=== PATIENT | female | born 1990 | race Caucasian/White ===

== ENCOUNTER 2017-11-07 12:25 | Emergency (ER) | payer OTHER, BC, MEDICAID, SELFPAY ==
[2017-11-07 14:23] LABS: BASO # 0.1 10^3/uL (0.0-0.2); BASO % 0.5 % (0.0-1.0); EOS # 0.2 10^3/uL (0.0-0.50); EOS % 1.6 % (0.0-3.0); HEMOGLOBIN 14.8 g/dl (12.0-16.0); IMMATURE GRANULOCYTE % 0.2 % (0-0); LYMPH # 2.7 10^3/uL (1.5-6.5); LYMPH % 21.6 % (24.0-44.0); MEAN CORPUSCULAR HEMOGLOBIN 32.4 pg (27.0-33.0); MEAN CORPUSCULAR HGB CONC 33.6 g/dl (32.0-36.5); MEAN CORPUSCULAR VOLUME 96.3 fl (80.0-96.0); MONO # 0.6 10^3/uL (0.0-0.8); MONO % 4.7 % (0.0-5.0); NEUTROPHILS # 8.7 10^3/uL (1.8-7.7); NEUTROPHILS % 71.4 % (36.0-66.0); PLATELET COUNT, AUTOMATED 285 10^3/uL (150-450); RED BLOOD COUNT 4.57 10^6/uL (4.00-5.40); RED CELL DISTRIBUTION WIDTH 12.1 % (11.5-14.5); WHITE BLOOD COUNT 12.3 10^3/uL (4.0-10.0)
[2017-11-07 15:06] LABS: ALBUMIN 4.2 GM/DL (3.2-5.2); ALBUMIN/GLOBULIN RATIO 1.08 (1.00-1.93); ALKALINE PHOSPHATASE 76 U/L (45-117); ALT/SGPT 28 U/L (12-78); ANION GAP 7 MEQ/L (8-16); AST/SGOT 16 U/L (7-37); BILIRUBIN,DIRECT 0.1 MG/DL (0.0-0.2); BILIRUBIN,TOTAL 0.4 MG/DL (0.2-1.0); BLOOD UREA NITROGEN 10 MG/DL (7-18); CALCIUM LEVEL 8.8 MG/DL (8.5-10.1); CARBON DIOXIDE LEVEL 27 MEQ/L (21-32); CHLORIDE LEVEL 103 MEQ/L (98-107); CREATININE FOR GFR 0.68 MG/DL (0.55-1.02); GLOMERULAR FILTRATION RATE > 60.0 (>60); GLUCOSE, FASTING 91 MG/DL (70-100); LIPASE 319 U/L (73-393); POTASSIUM SERUM 3.6 MEQ/L (3.5-5.1); SODIUM LEVEL 137 MEQ/L (136-145); TOTAL PROTEIN 8.1 GM/DL (6.4-8.2)
[2017-11-07 15:08] LABS: HCG, SERUM QUANTITATIVE 75 MIU/ML
[2017-11-07 15:31] LABS: KETONE, URINE AUTO RFX TRACE mg/dL (NEGATIVE); LEUKOCYTE ESTERASE UR AUTO RFX NEGATIVE (NEGATIVE); NITRITE, URINE AUTO RFX NEGATIVE (NEGATIVE); RBC, URINE AUTO RFX 3 /HPF (0-3); SPECIFIC GRAVITY UR AUTO RFX 1.014 (1.002-1.035); SQUAM EPITHELIAL CELL UR AURFX 0 /HPF (0-6); WBC, URINE AUTO RFX 3 /HPF (0-3)
[2017-11-07 15:46] LABS: CHLAMYDIA DNA AMPLIFICATION NEGATIVE (NEGATIVE); GC DNA AMPLIFICATION NEGATIVE (NEGATIVE)
[2017-11-07] MEDS: metroNIDAZOLE (FLAGYL) 500 MG TAB PO (17:24)
== END 2017-11-07 18:00 | disposition home or self-care (01) ==
LOC: M ED 12:25
DX: O20.0 Threatened abortion (principal); O23.90 Unspecified genitourinary tract infection in pregnancy, unspecified trimester; O99.330 Smoking (tobacco) complicating pregnancy, unspecified trimester; O99.340 Other mental disorders complicating pregnancy, unspecified trimester; F17.210 Nicotine dependence, cigarettes, uncomplicated; F33.9 Major depressive disorder, recurrent, unspecified; O99.310 Alcohol use complicating pregnancy, unspecified trimester; F10.21 Alcohol dependence, in remission; Z3A.00 Weeks of gestation of pregnancy not specified; Z79.899 Other long term (current) drug therapy; Z88.0 Allergy status to penicillin
CPT/HCPCS: 76801

== ENCOUNTER → 2017-11-09 | Outpatient (CLI) | payer OTHER ==
[2017-11-09 13:12] LABS: HCG, SERUM QUANTITATIVE 228 MIU/ML
== END ==
LOC: M LAB 11:45
DX: O20.0 Threatened abortion (principal)
CPT/HCPCS: 84702

== ENCOUNTER → 2017-12-09 | Outpatient (CLI) | payer OTHER ==
[2017-12-09 15:24] LABS: BASO # 0.1 10^3/uL (0.0-0.2); BASO % 0.5 % (0.0-1.0); EOS # 0.1 10^3/uL (0.0-0.50); EOS % 1.2 % (0.0-3.0); HEMATOCRIT 36.6 % (36.0-47.0); HEMOGLOBIN 12.3 g/dl (12.0-16.0); IMMATURE GRANULOCYTE % 0.3 % (0-3.0); LYMPH # 2.4 10^3/uL (1.5-6.5); LYMPH % 20.2 % (24.0-44.0); MEAN CORPUSCULAR HEMOGLOBIN 32.1 pg (27.0-33.0); MEAN CORPUSCULAR HGB CONC 33.6 g/dl (32.0-36.5); MEAN CORPUSCULAR VOLUME 95.6 fl (80.0-96.0); MONO # 0.8 10^3/uL (0.0-0.8); MONO % 6.8 % (0.0-5.0); NEUTROPHILS # 8.3 10^3/uL (1.8-7.7); PLATELET COUNT, AUTOMATED 300 10^3/uL (150-450); RED BLOOD COUNT 3.83 10^6/uL (4.00-5.40); RED CELL DISTRIBUTION WIDTH 12.2 % (11.5-14.5); WHITE BLOOD COUNT 11.7 10^3/uL (4.0-10.0)
[2017-12-09 15:37] LABS: RUBELLA IgG QUALITATIVE IMMUNE (IMMUNE)
[2017-12-09 15:38] LABS: HBsAg Prenatal NEGATIVE (NEGATIVE)
[2017-12-09 16:06] LABS: HIV 1&2 SCREEN CENTAUR NEGATIVE (NEGATIVE)
[2017-12-09 16:53] LABS: CHLAMYDIA DNA AMPLIFICATION NEGATIVE (NEGATIVE); GC DNA AMPLIFICATION NEGATIVE (NEGATIVE)
== END ==
LOC: M WUC 13:20
DX: Z34.01 Encounter for supervision of normal first pregnancy, first trimester (principal)
CPT/HCPCS: 86762

== ENCOUNTER → 2018-01-05 | Outpatient (CLI) | payer OTHER | LOC: M LAB 15:58 | DX: Z13.79 Encounter for other screening for genetic and chromosomal anomalies (principal) | CPT/HCPCS: 36415 ==

== ENCOUNTER → 2023-09-14 | Outpatient (REF) | payer MEDICAID, OTHER ==
[~2023-09-14] MED LIST: EFFE37.52 PO; METR-265 PO; NALT50TA4 PO; TRAZ-252 PO
== END ==
LOC: M SFHCWAGY 10:05
PROVIDERS: ATTEND Nurse Practitioner Family
DX: Z11.3 Encounter for screening for infections with a predominantly sexual mode of transmission (principal); N89.8 Other specified noninflammatory disorders of vagina

== ENCOUNTER → 2023-10-21 | Outpatient (REF) | payer OTHER, MEDICAID ==
[2023-10-21 14:20] LABS: CHLAMYDIA DNA AMPLIFICATION NEGATIVE (NEGATIVE); GC DNA AMPLIFICATION NEGATIVE (NEGATIVE)
== END ==
LOC: M SFHCWAGY 12:28
PROVIDERS: ATTEND Nurse Practitioner Family
DX: Z11.3 Encounter for screening for infections with a predominantly sexual mode of transmission (principal); N73.9 Female pelvic inflammatory disease, unspecified

== ENCOUNTER → 2023-12-29 | Outpatient (REF) | LOC: M EMP 15:25 | PROVIDERS: ATTEND Family Medicine | DX: Z11.52 Encounter for screening for COVID-19 (principal) ==

== ENCOUNTER → 2024-01-05 | Outpatient (REF) | payer OTHER | LOC: M SFHCWAGY 10:32 | PROVIDERS: ATTEND Nurse Practitioner Family | DX: N73.9 Female pelvic inflammatory disease, unspecified (principal) ==

== ENCOUNTER → 2024-08-23 | Outpatient (CLI) | payer OTHER ==
[2024-08-23 13:29] LABS: HEMATOCRIT 39.5 % (36.0-47.0); HEMOGLOBIN 12.8 g/dl (12.0-15.5); MEAN CORPUSCULAR HEMOGLOBIN 32.1 pg (27.0-33.0); MEAN CORPUSCULAR HGB CONC 32.4 g/dl (32.0-36.5); PLATELET COUNT, AUTOMATED 305 10^3/uL (150-450); RED BLOOD COUNT 3.99 10^6/uL (4.00-5.40); WHITE BLOOD COUNT 11.9 10^3/uL (4.0-10.0)
[2024-08-23 13:56] LABS: HIV 1&2 SCREEN NEGATIVE (NEGATIVE)
[2024-08-23 14:05] LABS: HEPATITIS C VIRUS ABY INDEX < 0.02 INDEX (<0.8)
[2024-08-23 15:22] LABS: Trichomonas vaginalis (AMP) NOT DETECTED (NEGATIVE)
[2024-08-23 15:45] LABS: GC DNA AMPLIFICATION NEGATIVE (NEGATIVE)
== END ==
LOC: M PLALAB 09:34
PROVIDERS: ATTEND Obstetrics & Gynecology
DX: Z34.81 Encounter for supervision of other normal pregnancy, first trimester (principal)

== ENCOUNTER 2024-10-17 16:38 | Emergency (ER) | payer OTHER, MEDICAID ==
[2024-10-17] MEDS ORDERED: PRENTAB9 PO (17:16)
== END 2024-10-17 19:13 | disposition left against medical advice (07) ==
LOC: M ED 16:38
DX: Z53.21 Procedure and treatment not carried out due to patient leaving prior to being seen by health care provider (principal)

== ENCOUNTER 2024-10-17 16:52 | Outpatient (CLI) | payer OTHER, MEDICAID ==
[~2024-10-17] VITALS: Ht 154.9 cm; Wt 55.2 kg
[2024-10-17 17:14] VITALS: BP 102/59; O2SAT 100
[2024-10-17] MEDS ORDERED: PRENTAB9 PO (17:16)
[2024-10-17 18:02] LABS: APPEARANCE, URINE CLEAR (CLEAR); BACTERIA, URINE AUTO NEGATIVE (NEGATIVE); BILIRUBIN, URINE AUTO NEGATIVE (NEGATIVE); BLOOD, URINE BLOOD 1+ (NEGATIVE); COLOR, URINE STRAW (YELLOW); GLUCOSE, URINE (UA) AUTO NEGATIVE (NEGATIVE); KETONE, URINE AUTO NEGATIVE (NEGATIVE); LEUKOCYTE ESTERASE, URINE AUTO NEGATIVE (NEGATIVE); NITRITE, URINE AUTO NEGATIVE (NEGATIVE); PROTEIN, URINE AUTO NEGATIVE (NEGATIVE); RBC, URINE AUTO 3 /HPF (0-3); SPECIFIC GRAVITY URINE AUTO 1.002 (1.002-1.035); SQUAMOUS EPITHELIAL CELL UR AU 1 /HPF (0-6); UROBILINOGEN, URINE AUTO 0.2 mg/dL (0.0-2.0); WBC, URINE AUTO 0 /HPF (0-3)
== END 2024-10-17 19:20 | disposition home or self-care (01) ==
LOC: M LDO 16:52
PROVIDERS: ATTEND Advanced Practice Midwife
DX: O26.892 Other specified pregnancy related conditions, second trimester (principal); R25.2 Cramp and spasm; Z3A.20 20 weeks gestation of pregnancy; W19.XXXA Unspecified fall, initial encounter; O99.332 Smoking (tobacco) complicating pregnancy, second trimester; F17.290 Nicotine dependence, other tobacco product, uncomplicated; Z14.8 Genetic carrier of other disease
CPT/HCPCS: 76815; 76817; 81001; G0463

== ENCOUNTER → 2024-11-09 | Outpatient (CLI) | payer OTHER ==
[~2024-11-09] MED LIST changes: +PRENTAB9 PO
== END ==
LOC: M WHC 13:09
PROVIDERS: ATTEND Obstetrics & Gynecology
DX: O34.32 Maternal care for cervical incompetence, second trimester (principal); Z3A.23 23 weeks gestation of pregnancy

== ENCOUNTER → 2024-11-28 | Outpatient (REF) | payer OTHER | LOC: M PLALAB 16:21 | PROVIDERS: ATTEND Nurse Practitioner Family | DX: Z34.82 Encounter for supervision of other normal pregnancy, second trimester (principal) ==

== ENCOUNTER 2024-12-12 13:41 | Outpatient (CLI) | payer OTHER, MEDICAID ==
[~2024-12-12] VITALS: Ht 154.9 cm; Wt 59.3 kg
[2024-12-12] MEDS ORDERED: HOME MED LIST COMPLETE! XX SCH (13:55)
[2024-12-12 14:02] VITALS: BP 102/55
[2024-12-12 15:06] VITALS: BP 98/54
== END 2024-12-12 15:40 | disposition home or self-care (01) ==
LOC: M LDO 13:41
PROVIDERS: ATTEND Advanced Practice Midwife
DX: O36.8130 Decreased fetal movements, third trimester, not applicable or unspecified (principal); O99.333 Smoking (tobacco) complicating pregnancy, third trimester; O99.343 Other mental disorders complicating pregnancy, third trimester; R10.2 Pelvic and perineal pain; O44.43 Low lying placenta NOS or without hemorrhage, third trimester; F17.290 Nicotine dependence, other tobacco product, uncomplicated; Z14.8 Genetic carrier of other disease; F41.8 Other specified anxiety disorders; F31.9 Bipolar disorder, unspecified; Z3A.28 28 weeks gestation of pregnancy
CPT/HCPCS: 59025; 76815; 76819; 76820; G0463

== ENCOUNTER → 2024-12-22 | Outpatient (CLI) | payer OTHER | LOC: M LAB 16:59 | PROVIDERS: ATTEND Nurse Practitioner Family | DX: Z14.8 Genetic carrier of other disease (principal) ==

== ENCOUNTER → 2024-12-22 | Outpatient (CLI) | payer OTHER ==
[2024-12-22 12:47] LABS: HEMOGLOBIN 12.6 g/dl (12.0-15.5); MEAN CORPUSCULAR HEMOGLOBIN 32.6 pg (27.0-33.0); MEAN CORPUSCULAR HGB CONC 33.2 g/dl (32.0-36.5); MEAN CORPUSCULAR VOLUME 98.2 fl (80.0-96.0); PLATELET COUNT, AUTOMATED 268 10^3/uL (150-450); RED BLOOD COUNT 3.87 10^6/uL (4.00-5.40); WHITE BLOOD COUNT 11.7 10^3/uL (4.0-10.0)
[2024-12-22 13:10] LABS: GLUCOSE CHALLENGE TEST 1 HOUR 60 MG/DL (LESS THAN 140)
[2024-12-22 13:45] LABS: HIV 1&2 SCREEN NEGATIVE (NEGATIVE)
[2024-12-22 13:53] LABS: HEPATITIS C VIRUS ABY INDEX 0.02 INDEX (<0.8)
== END ==
LOC: M PLALAB 07:49
PROVIDERS: ATTEND Obstetrics & Gynecology
DX: Z34.82 Encounter for supervision of other normal pregnancy, second trimester (principal)

== ENCOUNTER → 2025-01-02 | Outpatient (CLI) | payer OTHER | LOC: M WHC 09:06 | PROVIDERS: ATTEND Nurse Practitioner Family | DX: O44.42 Low lying placenta NOS or without hemorrhage, second trimester (principal) ==

== ENCOUNTER 2025-01-23 08:13 | Inpatient (IN) | payer OTHER ==
[2025-01-23] VITALS (35 sets, daily range): BP systolic 98–129; BP diastolic 50–80
[~2025-01-23] VITALS: Ht 154.9 cm; Wt 62.8 kg
[~2025-01-23 08:13] MED LIST changes: -ACET-907 PO
[2025-01-23] MEDS ORDERED: ACET-907 PO (08:27)
[2025-01-23] MEDS ORDERED: HOME MED LIST COMPLETE! XX SCH (08:30)
[2025-01-23] MEDS ORDERED: CARBOPROST TROMETHAMINE 250 MCG/ML AMP IM PRN (09:10)
[2025-01-23] MEDS ORDERED: LIDOCAINE 1% MDV 20ML VIAL INFIL PRN (09:10)
[2025-01-23] MEDS ORDERED: OXYTOCIN INJ 10UNITS/ML 1ML VIAL IM PRN (09:10)
[2025-01-23] MEDS ORDERED: METHYLERGONOVINE MALEATE 0.2MG/ML 1ML VIAL IM PRN (09:10)
[2025-01-23] MEDS ORDERED: TRANEXAMIC ACID INJection 1,000 MG in NS 100 ML IV PRN (09:10)
[2025-01-23] MEDS ORDERED: OXYTOCIN DRIP 30 UNITS in IV 1 EA IV PRN (09:10)
[2025-01-23] MEDS ORDERED: VANCOMYCIN HCL 1,000 MG, VIAL MATE ADAPTER 1 EACH in NS 250 ML IV SCH (09:15)
[2025-01-23] MEDS: BETAMETHASONE SOLUSPAN 6MG/ML 5ML VIAL IM SCH (09:52)
[2025-01-23 10:06] LABS: HEMATOCRIT 32.4 % (36.0-47.0); HEMOGLOBIN 11.1 g/dl (12.0-15.5); MEAN CORPUSCULAR HEMOGLOBIN 32.8 pg (27.0-33.0); MEAN CORPUSCULAR HGB CONC 34.3 g/dl (32.0-36.5); MEAN CORPUSCULAR VOLUME 95.9 fl (80.0-96.0); PLATELET COUNT, AUTOMATED 263 10^3/uL (150-450); RED BLOOD COUNT 3.38 10^6/uL (4.00-5.40); WHITE BLOOD COUNT 16.3 10^3/uL (4.0-10.0)
[2025-01-23 11:04] LABS: HIV 1&2 SCREEN NEGATIVE (NEGATIVE)
[2025-01-23] MEDS: LACTATED RINGER'S 1000 ML IV STA (11:11)
[2025-01-23] MEDS: ceFAZolin SODIUM 2 GM in DEXTROSE 5% (D5W) ADV/MINI-BAG 50 ML IV STA (11:11)
[2025-01-23 11:12] LABS: HEPATITIS C VIRUS ABY INDEX 0.06 INDEX (<0.8)
[2025-01-23 12:29] LABS: AMPHETAMINES URINE REFLEX NEGATIVE (NEGATIVE); BARBITURATES URINE REFLEX NEGATIVE (NEGATIVE); BENZODIAZEPINES URINE REFLEX NEGATIVE (NEGATIVE); COCAINE METABOLITE URINE REFLE NEGATIVE (NEGATIVE); METHADONE URINE REFLEX NEGATIVE (NEGATIVE); OPIATES URINE REFLEX NEGATIVE (NEGATIVE); PHENCYCLIDINE URINE REFLEX NEGATIVE (NEGATIVE)
[2025-01-23 12:48] LABS: CANNABINOIDS URINE REFLEX PENDING CONFIRMATION (NEGATIVE)
[2025-01-23] MEDS ORDERED: FENTANYL 2MCG/ML ROPIVACAINE 0.2% IN 0.9% NACL 100ML IVBAG As Ordered ONE (12:54)
[2025-01-23] MEDS ORDERED: EPIDURAL/PCA KEYS XX PRN (12:55)
[2025-01-23] MEDS ORDERED: diphenhydrAMINE 50MG/ML VIAL IV PRN (12:55)
[2025-01-23] MEDS ORDERED: LR 500 ML IV PRN (12:55)
[2025-01-23] MEDS ORDERED: NALOXONE INJ 0.4MG/1ML VIAL IV PRN (12:55)
[2025-01-23] MEDS ORDERED: ePHEDrine SULFATE 25 MG/5 ML(5MG/ML) SYRINGE IVP PRN (12:55)
[2025-01-23] MEDS: FENTANYL/ROPIVACAINE/NACL BAG 100 ML EPIDURAL SCH (13:30)
[2025-01-23] MEDS: OXYTOCIN DRIP 30 UNITS in IV 1 EA IV SCH (14:11)
[2025-01-23] MEDS: LR 1,000 ML IV SCH (14:11)
[2025-01-23] MEDS: ceFAZolin SOD 1 GM in DEXTROSE 5% (D5W) ADV/MINI-BAG 50 ML IV SCH (18:47)
[2025-01-23] MEDS: ONDANSETRON 4MG 2ML VIAL IV PRN (19:46)
[2025-01-23] MEDS ORDERED: ACETAMINOPHEN 325 MG TAB PO PRN (21:50)
[2025-01-23] MEDS ORDERED: ANUSOL HC CREAM 30GM TOP PRN (21:50)
[2025-01-23] MEDS ORDERED: RHOGAM 300MCG (1500IU) INJ IM SCH (21:50)
[2025-01-23] MEDS ORDERED: IBUPROFEN 600MG TAB PO PRN (21:50)
[2025-01-24] MEDS: DIBUCAINE 1% OINTMENT 30GM TOP PRN (00:45)
[2025-01-24] MEDS: IBUPROFEN 800 MG TAB PO PRN (00:45)
[2025-01-24 00:56] VITALS: BP 101/58; O2SAT 97
[2025-01-24] MEDS: ACETAMINOPHEN 500 MG TAB PO PRN (05:21)
[2025-01-24 06:00] VITALS: BP 109/53; O2SAT 100
[2025-01-24] MEDS: PRENATAL VITAMINS CHEWABLE TABLET PO SCH (12:05)
[2025-01-24 18:00] VITALS: BP 107/62
[2025-01-24] MEDS: METOCLOPRAMIDE 10MG TAB PO ONE (18:47)
[2025-01-24] MEDS: diphenhydrAMINE 25MG CAP PO ONE (18:47)
[2025-01-25 06:00] VITALS: BP 112/67; O2SAT 98
[2025-01-25] MEDS: MEASLES,MUMPS,RUBELLA VACCINE INJ (MMR-II) SC.IMMUN ONE (08:19)
[2025-01-25] MEDS: DOCUSATE SODIUM 100MG CAPSULE PO PRN (08:28)
[2025-01-25] MEDS: MOM 30ML SUSPENSION UDC PO PRN (08:28)
== END 2025-01-25 14:20 | disposition home or self-care (01) | DRG 560 ==
LOC: M LDO 08:13 → M LDI 09:11 → M OBS 01-24 00:55
PROVIDERS: ADMIT Advanced Practice Midwife; ATTEND Advanced Practice Midwife
PROC: 10E0XZZ Delivery of Products of Conception, External Approach (ICD-10-PCS; principal; 2025-01-23)
PROC: 0HQ9XZZ Repair Perineum Skin, External Approach (ICD-10-PCS; 2025-01-23)
DX: O42.113 Preterm premature rupture of membranes, onset of labor more than 24 hours following rupture, third trimester (principal); O36.5930 Maternal care for other known or suspected poor fetal growth, third trimester, not applicable or unspecified; Z3A.34 34 weeks gestation of pregnancy; O69.81X0 Labor and delivery complicated by cord around neck, without compression, not applicable or unspecified; O70.0 First degree perineal laceration during delivery; Z37.0 Single live birth

== ENCOUNTER → 2025-01-23 | Outpatient (CLI) | payer OTHER ==
[~2025-01-23] MED LIST changes: +ACET-907 PO
== END ==
LOC: M RAD 07:26
PROVIDERS: ATTEND Nurse Practitioner Family
DX: Z14.8 Genetic carrier of other disease (principal)

== ENCOUNTER → 2025-06-23 | Outpatient (CLI) | payer OTHER ==
[~2025-06-23] MED LIST changes: +ACET-907 PO
[2025-06-26 14:15] LABS: Trichomonas vaginalis (AMP) NOT DETECTED (NEGATIVE)
[2025-06-26 14:39] LABS: GC DNA AMPLIFICATION NEGATIVE (NEGATIVE)
== END ==
LOC: M PLALAB 15:30
PROVIDERS: ATTEND Advanced Practice Midwife
DX: Z01.419 Encounter for gynecological examination (general) (routine) without abnormal findings (principal); Z11.51 Encounter for screening for human papillomavirus (HPV); Z80.0 Family history of malignant neoplasm of digestive organs; Z77.9 Other contact with and (suspected) exposures hazardous to health